=== PATIENT | female | born 1950 | race Caucasian/White ===

== ENCOUNTER 2017-10-11 00:14 | Inpatient (IN) | payer MEDICAID ==
[~2017-10-11] VITALS: Ht 162.6 cm; Wt 129.3 kg
[2017-10-11 01:46] LABS: Basophils # (auto) 0.1 uL; Basophils % (auto) 1.1 % (0.0-2.0); Eosinophils # (auto) 0 uL; Eosinophils % (auto) 0.4 % (0.0-7.0); Hematocrit 35.7 % (36.0-46.0); Lymphocytes # (auto) 1.5 uL; Lymphocytes % (auto) 25.1 % (10.0-50.0); Mean Corpuscular Hemoglobin 30.3 pg (28.0-32.0); Mean Corpuscular Hgb Conc. 33.6 g/dL (32.0-36.0); Mean Corpuscular Volume 90.1 fL (80.0-100.0); Monocytes # (auto) 0.9 uL; Monocytes % (auto) 14.4 % (0.0-12.0); Neutrophils # (auto) 3.6 uL; Nucleated Red Blood Cells % 0.1 %; Platelet Count (auto) 223 10^3/uL (140-450); Red Blood Cells 3.96 10^6/uL (4.0-5.20); Red Cell Distribution Width 14.3 % (11.8-14.3)
[2017-10-11 02:16] LABS: Alanine Aminotransferase 60 U/L (13-56); Anion Gap 9 (5-15); Aspartate Aminotransferase 89 U/L (15-37); BUN/Creatinine Ratio 6.5; Blood Urea Nitrogen 10 mg/dL (7-18); Calcium 8.6 mg/dL (8.5-10.1); Carbon Dioxide 29 mmol/L (21-32); Chloride 96 mmol/L (98-107); GFR African American 43 mL/min; GFR Non-African American 36 mL/min; Glucose 93 mg/dL (74-106); Potassium 3.7 mmol/L (3.5-5.1); Sodium 134 mmol/L (136-145)
[2017-10-11 02:21] LABS: Alkaline Phosphatase 72 U/L (45-117); Bilirubin, Total 0.6 mg/dL (0.2-1.0); Total Protein 7.6 g/dL (6.4-8.2)
[2017-10-11 05:21] LABS: Urine Bacteria FEW /hpf (None Seen); Urine Blood Negative /uL (Negative); Urine Hyaline Cast FEW /lpf (0 - 2); Urine Mucus FEW (None Seen); Urine Specific Gravity 1.018 (1.001-1.035); Urine WBC 2 /hpf (0 - 5)
[2017-10-11] MEDS ORDERED: MORPHINE SULF INJ 2 MG/ML SYRINGE 1ML IV PRN (07:15)
[2017-10-11] MEDS ORDERED: SODIUM CHLORIDE 0.9% 1,000 ML IV ONE ×3 (07:15)
[2017-10-11] MEDS: PANTOPRAZOLE 40 MG/10 ML VIAL IV SCH (10:17)
[2017-10-11 10:34] VITALS: BP 106/59
[2017-10-11 11:21] VITALS: BP 106/59
[2017-10-11 12:00] VITALS: BP_SYST 120; BP_SYST 96; BP_DIAS 32; BP_DIAS 72
[2017-10-11] MEDS: MORPHINE SULFATE 4 MG/ML SYR/VIAL IV PRN ×2 (13:20→22:29)
[2017-10-11] MEDS ORDERED: LORazepam 2MG/ML-1ML VIAL IV PRN (14:15)
[2017-10-11] MEDS: ACETAMINOPHEN 325 MG TAB PO PRN (14:24)
[2017-10-11 14:40] LABS: Alcohol, Urine < 3.0 mg/dL (0-5); Amphetamine Screen, Urine NEGATIVE (NEGATIVE); Barbiturate Scree,Urine NEGATIVE (NEGATIVE); Benzodiazephine Screen, Urine NEGATIVE (NEGATIVE); Cannabinoid Screen, Urine NEGATIVE (NEGATIVE); Cocaine Screen, Urine NEGATIVE (NEGATIVE); Opiate Scree,Urine NEGATIVE (NEGATIVE); Phencyclidine Screen, Urine NEGATIVE (NEGATIVE)
[2017-10-11] MEDS ORDERED: ASPirin-EC 81 mg tab PO ONE (17:00)
[2017-10-11 17:05] VITALS: BP 131/67
[2017-10-11] MEDS ORDERED: cefTRIAXone 1GM/10ml IVPUSH 10 ML IV ONE (17:15)
[2017-10-11] MEDS: SODIUM CHLORIDE 0.9% 1,000 ML IV SCH ×2 (18:07→22:32)
[2017-10-11 21:04] VITALS: BP 131/67
[2017-10-11 21:42] VITALS: BP 110/53
[2017-10-12] MEDS: ACETAMINOPHEN 325 MG TAB PO PRN ×2 (01:44→17:19)
[2017-10-12] MEDS: ALBUTEROL SULF 2.5 MG/0.5ML(0.5%) NEB SOLN NEB PRN (01:47)
[2017-10-12] MEDS: IPRATROPIUM BROM 0.5 MG/2.5ML INH SOL NEB PRN (01:47)
[2017-10-12 02:04] VITALS: BP 106/61
[2017-10-12] MEDS: LORazepam 2MG/ML-1ML VIAL IV PRN (02:58)
[2017-10-12 05:00] VITALS: BP 110/51
[2017-10-12 06:10] LABS: Basophils # (auto) 0 uL; Basophils % (auto) 0.7 % (0.0-2.0); Eosinophils # (auto) 0 uL; Eosinophils % (auto) 0.2 % (0.0-7.0); Hematocrit 31.4 % (36.0-46.0); Hemoglobin 10.5 g/dL (12.2-16.2); Lymphocytes # (auto) 1.7 uL; Lymphocytes % (auto) 37.6 % (10.0-50.0); Mean Corpuscular Hemoglobin 30.7 pg (28.0-32.0); Mean Corpuscular Hgb Conc. 33.6 g/dL (32.0-36.0); Mean Corpuscular Volume 91.4 fL (80.0-100.0); Monocytes # (auto) 0.6 uL; Monocytes % (auto) 13.7 % (0.0-12.0); Neutrophils # (auto) 2.2 uL; Neutrophils % (auto) 47.8 % (37.0-80.0); Nucleated Red Blood Cells % 0.2 %; Platelet Count (auto) 174 10^3/uL (140-450); Red Blood Cells 3.43 10^6/uL (4.0-5.20); Red Cell Distribution Width 14.5 % (11.8-14.3); White Blood Cell 4.6 10^3/uL (4.4-10.8)
[2017-10-12 06:38] LABS: Albumin 2.6 g/dL (3.4-5.0); BUN/Creatinine Ratio 8.2; Bilirubin, Total 0.3 mg/dL (0.2-1.0); Potassium 3.4 mmol/L (3.5-5.1); Total Protein 6.5 g/dL (6.4-8.2)
[2017-10-12 08:00] VITALS: BP 109/71
[2017-10-12] MEDS: ENOXAPARIN SOD 40 MG/0.4 ML SYRINGE SC SCH (09:33)
[2017-10-12] MEDS: ASPirin-EC 81 mg tab PO SCH (09:34)
[2017-10-12] MEDS: PANTOPRAZOLE 40 MG/10 ML VIAL IV SCH (09:34)
[2017-10-12] MEDS: cefTRIAXone 1GM/10ml IVPUSH 10 ML IV SCH (09:34)
[2017-10-12 12:00] VITALS: BP 100/52
[2017-10-12] MEDS: MORPHINE SULFATE 4 MG/ML SYR/VIAL IV PRN ×2 (14:43→20:53)
[2017-10-12] MEDS ORDERED: guaiFENesin-DM 100/10mg/5ml SYR PO PRN (15:00)
[2017-10-12] MEDS ORDERED: AZITHROMYCIN 500MG/ 250ML 250 ML IV ONE (15:00)
[2017-10-12] MEDS ORDERED: POTASSIUM CHL 20 Meq TABLET PO ONE (15:00)
[2017-10-12 17:00] VITALS: BP 124/67
[2017-10-12] MEDS: ONDANSETRON HCL 4 MG/2 ML VIAL IV PRN (20:52)
[2017-10-12] MEDS: OSELTAMIVIR 75 MG CAP PO SCH (21:18)
[2017-10-12 21:41] VITALS: BP 111/64
[2017-10-13] MEDS: SODIUM CHLORIDE 0.9% 1,000 ML IV SCH ×2 (03:25→18:33)
[2017-10-13 05:00] VITALS: BP 116/70
[2017-10-13 07:14] LABS: % Iron Saturation 9.8 % (15-50)
[2017-10-13 09:00] VITALS: BP 112/68
[2017-10-13] MEDS: ASPirin-EC 81 mg tab PO SCH (09:33)
[2017-10-13] MEDS: ENOXAPARIN SOD 40 MG/0.4 ML SYRINGE SC SCH (09:33)
[2017-10-13] MEDS: OSELTAMIVIR 75 MG CAP PO SCH ×2 (09:33→21:29)
[2017-10-13] MEDS: cefTRIAXone 1GM/10ml IVPUSH 10 ML IV SCH (09:34)
[2017-10-13] MEDS: AZITHROMYCIN 500MG/ 250ML 250 ML IV SCH (09:34)
[2017-10-13] MEDS: PANTOPRAZOLE 40 MG/10 ML VIAL IV SCH (09:34)
[2017-10-13] MEDS: IPRATROPIUM BROM 0.5 MG/2.5ML INH SOL NEB PRN ×2 (11:21→18:08)
[2017-10-13] MEDS: ALBUTEROL SULF 2.5 MG/0.5ML(0.5%) NEB SOLN NEB PRN ×2 (11:21→18:08)
[2017-10-13 17:00] VITALS: BP 112/61
[2017-10-13] MEDS: ACETAMINOPHEN 325 MG TAB PO PRN (18:48)
[2017-10-13] MEDS: LORazepam 0.5 MG TAB PO PRN (21:29)
[2017-10-13 23:53] VITALS: BP 100/58
[2017-10-14 05:52] VITALS: BP 112/64
[2017-10-14 05:59] LABS: Basophils # (auto) 0 uL; Basophils % (auto) 0.5 % (0.0-2.0); Eosinophils # (auto) 0 uL; Eosinophils % (auto) 0.5 % (0.0-7.0); Hematocrit 37.7 % (36.0-46.0); Hemoglobin 12.4 g/dL (12.2-16.2); Lymphocytes # (auto) 1.5 uL; Lymphocytes % (auto) 53.3 % (10.0-50.0); Mean Corpuscular Hemoglobin 30.5 pg (28.0-32.0); Mean Corpuscular Volume 92.4 fL (80.0-100.0); Monocytes # (auto) 0.3 uL; Monocytes % (auto) 11.4 % (0.0-12.0); Neutrophils % (auto) 34.3 % (37.0-80.0); Nucleated Red Blood Cells % 0.1 %; Platelet Count (auto) 158 10^3/uL (140-450); Red Blood Cells 4.08 10^6/uL (4.0-5.20); Red Cell Distribution Width 14.1 % (11.8-14.3); White Blood Cell 2.8 10^3/uL (4.4-10.8)
[2017-10-14 06:16] LABS: Albumin 2.7 g/dL (3.4-5.0); BUN/Creatinine Ratio 7.1; Bilirubin, Total 0.3 mg/dL (0.2-1.0); Calcium 8.2 mg/dL (8.5-10.1); Potassium 4.1 mmol/L (3.5-5.1)
[2017-10-14] MEDS: ALBUTEROL SULF 2.5 MG/0.5ML(0.5%) NEB SOLN NEB PRN ×2 (08:55→12:40)
[2017-10-14] MEDS: IPRATROPIUM BROM 0.5 MG/2.5ML INH SOL NEB PRN ×2 (08:55→12:40)
[2017-10-14 09:00] VITALS: BP 115/78
[2017-10-14] MEDS: PANTOPRAZOLE 40 MG TAB PO SCH (10:06)
[2017-10-14] MEDS: cefTRIAXone 1GM/10ml IVPUSH 10 ML IV SCH (10:06)
[2017-10-14] MEDS: OSELTAMIVIR 75 MG CAP PO SCH ×2 (10:06→22:10)
[2017-10-14] MEDS: ASPirin-EC 81 mg tab PO SCH (10:06)
[2017-10-14] MEDS: ENOXAPARIN SOD 40 MG/0.4 ML SYRINGE SC SCH (10:07)
[2017-10-14] MEDS: AZITHROMYCIN 500MG/ 250ML 250 ML IV SCH (10:07)
[2017-10-14] MEDS: ACETAMINOPHEN 325 MG TAB PO PRN (10:09)
[2017-10-14] MEDS: SODIUM CHLORIDE 0.9% 1,000 ML IV SCH (11:44)
[2017-10-14] MEDS: LORazepam 0.5 MG TAB PO PRN ×2 (11:44→22:10)
[2017-10-14 13:00] VITALS: BP 100/68
[2017-10-14] MEDS ORDERED: FLUCONAZOLE 200MG/100ML 100 ML IV ONE (13:45)
[2017-10-14 13:57] LABS: Free T4 (Free Thyroxine) 0.87 ng/dL (0.89-1.76)
[2017-10-14 13:58] LABS: Folate (Folic Acid) 8.84 ng/mL (5.38-24)
[2017-10-14 13:59] LABS: Hepatitis B Surface Antibody Negative
[2017-10-14] MEDS: ONDANSETRON HCL 4 MG/2 ML VIAL IV PRN ×2 (14:08→23:14)
[2017-10-14 14:10] LABS: Hepatitis B Surface Antigen Negative (Negative)
[2017-10-14 14:31] LABS: Hepatitis C Antibody Negative (Negative)
[2017-10-14 14:32] LABS: Hepatitis A Total Antibody Positive
[2017-10-14 14:35] LABS: Hepatitis B Core Total AB Negative
[2017-10-14] MEDS: MORPHINE SULFATE 4 MG/ML SYR/VIAL IV PRN (16:38)
[2017-10-14] MEDS ORDERED: CYANOCOBALAMIN (B-12) 1000 MCG/1 ML VIAL IM ONE (17:00)
[2017-10-14 17:22] VITALS: BP 134/62
[2017-10-14 22:00] VITALS: BP 106/59
[2017-10-15] VITALS (7 sets, daily range): BP systolic 119–133; BP diastolic 76–90
[2017-10-15] MEDS: SODIUM CHLORIDE 0.9% 1,000 ML IV SCH ×3 (04:34→22:33)
[2017-10-15] MEDS: ACETAMINOPHEN 325 MG TAB PO PRN (06:02)
[2017-10-15 06:19] LABS: Basophils # (auto) 0 uL; Basophils % (auto) 0.4 % (0.0-2.0); Eosinophils # (auto) 0 uL; Eosinophils % (auto) 0.7 % (0.0-7.0); Hematocrit 33.4 % (36.0-46.0); Hemoglobin 11.1 g/dL (12.2-16.2); Lymphocytes # (auto) 1.2 uL; Lymphocytes % (auto) 41.4 % (10.0-50.0); Mean Corpuscular Hemoglobin 30.2 pg (28.0-32.0); Mean Corpuscular Hgb Conc. 33.2 g/dL (32.0-36.0); Monocytes # (auto) 0.3 uL; Monocytes % (auto) 10.4 % (0.0-12.0); Neutrophils # (auto) 1.4 uL; Neutrophils % (auto) 47.1 % (37.0-80.0); Nucleated Red Blood Cells % 0.3 %; Platelet Count (auto) 160 10^3/uL (140-450); Red Blood Cells 3.67 10^6/uL (4.0-5.20); Red Cell Distribution Width 14.5 % (11.8-14.3)
[2017-10-15 06:34] LABS: BUN/Creatinine Ratio 8.1; Calcium 8.2 mg/dL (8.5-10.1); Potassium 3.7 mmol/L (3.5-5.1)
[2017-10-15] MEDS: PANTOPRAZOLE 40 MG TAB PO SCH (10:39)
[2017-10-15] MEDS: CYANOCOBALAMIN 500 MCG TAB PO SCH (10:39)
[2017-10-15] MEDS: ASPirin-EC 81 mg tab PO SCH (10:39)
[2017-10-15] MEDS: OSELTAMIVIR 75 MG CAP PO SCH ×2 (10:39→22:29)
[2017-10-15] MEDS: ENOXAPARIN SOD 40 MG/0.4 ML SYRINGE SC SCH (10:43)
[2017-10-15] MEDS: cefTRIAXone 1GM/10ml IVPUSH 10 ML IV SCH (11:11)
[2017-10-15] MEDS: FLUCONAZOLE 200MG/100ML 100 ML IV SCH (11:12)
[2017-10-15] MEDS: AZITHROMYCIN 500MG/ 250ML 250 ML IV SCH (12:00)
[2017-10-15] MEDS ORDERED: IOHEXOL 350 MG/ML 100ML IJ ONE (14:49)
[2017-10-15] MEDS ORDERED: ENOXAPARIN SOD 120 MG/0.8 ML SYRINGE SC ONE (18:15)
[2017-10-15] MEDS: MORPHINE SULFATE 4 MG/ML SYR/VIAL IV PRN (23:46)
[2017-10-16] VITALS (8 sets, daily range): BP systolic 101–141; BP diastolic 65–76
[2017-10-16 06:01] LABS: Basophils # (auto) 0 uL; Basophils % (auto) 0.4 % (0.0-2.0); Eosinophils # (auto) 0 uL; Eosinophils % (auto) 0.7 % (0.0-7.0); Hematocrit 32.8 % (36.0-46.0); Hemoglobin 10.9 g/dL (12.2-16.2); Lymphocytes # (auto) 1.7 uL; Lymphocytes % (auto) 53.7 % (10.0-50.0); Mean Corpuscular Hemoglobin 29.9 pg (28.0-32.0); Mean Corpuscular Hgb Conc. 33.1 g/dL (32.0-36.0); Mean Corpuscular Volume 90.3 fL (80.0-100.0); Monocytes # (auto) 0.3 uL; Monocytes % (auto) 11.2 % (0.0-12.0); Neutrophils # (auto) 1.1 uL; Nucleated Red Blood Cells % 0.3 %; Platelet Count (auto) 153 10^3/uL (140-450); Red Blood Cells 3.63 10^6/uL (4.0-5.20); Red Cell Distribution Width 14.2 % (11.8-14.3); White Blood Cell 3.1 10^3/uL (4.4-10.8)
[2017-10-16 06:32] LABS: Albumin 2.4 g/dL (3.4-5.0); Calcium 8.2 mg/dL (8.5-10.1); Potassium 3.7 mmol/L (3.5-5.1)
[2017-10-16 06:35] LABS: BUN/Creatinine Ratio 5.6; Bilirubin, Total 0.3 mg/dL (0.2-1.0); Total Protein 6.4 g/dL (6.4-8.2)
[2017-10-16] MEDS ORDERED: ENOXAPARIN SOD 120 MG/0.8 ML SYRINGE SC SCH (10:00)
[2017-10-16] MEDS: ASPirin-EC 81 mg tab PO SCH (10:13)
[2017-10-16] MEDS: CYANOCOBALAMIN 500 MCG TAB PO SCH (10:14)
[2017-10-16] MEDS: OSELTAMIVIR 75 MG CAP PO SCH ×2 (10:14→22:05)
[2017-10-16] MEDS: PANTOPRAZOLE 40 MG TAB PO SCH (10:14)
[2017-10-16] MEDS: FLUCONAZOLE 200MG/100ML 100 ML IV SCH (10:25)
[2017-10-16] MEDS: cefTRIAXone 1GM/10ml IVPUSH 10 ML IV SCH (10:25)
[2017-10-16] MEDS: AZITHROMYCIN 500MG/ 250ML 250 ML IV SCH (12:06)
[2017-10-16] MEDS: SODIUM CHLORIDE 0.9% 1,000 ML IV SCH ×2 (13:45→18:45)
[2017-10-16] MEDS: ACETAMINOPHEN 325 MG TAB PO PRN (15:35)
[2017-10-16] MEDS: LORazepam 0.5 MG TAB PO PRN (22:05)
[2017-10-17] MEDS: ONDANSETRON HCL 4 MG/2 ML VIAL IV PRN (02:02)
[2017-10-17] MEDS: SODIUM CHLORIDE 0.9% 1,000 ML IV SCH ×2 (04:45→14:45)
[2017-10-17 05:00] VITALS: BP 140/87
[2017-10-17 08:00] VITALS: BP 129/75
[2017-10-17 09:00] VITALS: BP 129/75
[2017-10-17] MEDS: cefTRIAXone 1GM/10ml IVPUSH 10 ML IV SCH (09:00)
[2017-10-17] MEDS: LORazepam 0.5 MG TAB PO PRN ×2 (09:14→22:08)
[2017-10-17] MEDS: FLUCONAZOLE 200MG/100ML 100 ML IV SCH (11:09)
[2017-10-17] MEDS: AZITHROMYCIN 500MG/ 250ML 250 ML IV SCH (11:09)
[2017-10-17] MEDS: PANTOPRAZOLE 40 MG TAB PO SCH (11:10)
[2017-10-17] MEDS: CYANOCOBALAMIN 500 MCG TAB PO SCH (11:10)
[2017-10-17] MEDS: OSELTAMIVIR 75 MG CAP PO SCH ×2 (11:10→20:30)
[2017-10-17] MEDS: ASPirin-EC 81 mg tab PO SCH (11:11)
[2017-10-17] MEDS: MORPHINE SULFATE 4 MG/ML SYR/VIAL IV PRN ×2 (11:31→20:30)
[2017-10-17 12:50] VITALS: BP 127/76
[2017-10-17 16:36] VITALS: BP 132/75
[2017-10-17] MEDS: ASPirin-EC 325mg tab PO SCH (18:23)
[2017-10-17 21:57] VITALS: BP 120/70
[2017-10-18] VITALS (7 sets, daily range): BP systolic 119–134; BP diastolic 51–86
[2017-10-18] MEDS: SODIUM CHLORIDE 0.9% 1,000 ML IV SCH ×2 (00:52→23:06)
[2017-10-18] MEDS: ALBUTEROL SULF 2.5 MG/0.5ML(0.5%) NEB SOLN NEB PRN ×2 (02:30→22:11)
[2017-10-18] MEDS: IPRATROPIUM BROM 0.5 MG/2.5ML INH SOL NEB PRN ×2 (02:30→22:11)
[2017-10-18] MEDS: ACETAMINOPHEN 325 MG TAB PO PRN (03:31)
[2017-10-18] MEDS: LORazepam 0.5 MG TAB PO PRN ×2 (04:47→22:37)
[2017-10-18] MEDS: cefTRIAXone 1GM/10ml IVPUSH 10 ML IV SCH (09:00)
[2017-10-18] MEDS: MORPHINE SULFATE 4 MG/ML SYR/VIAL IV PRN ×3 (09:15→19:50)
[2017-10-18] MEDS: CYANOCOBALAMIN 500 MCG TAB PO SCH (10:00)
[2017-10-18] MEDS: OSELTAMIVIR 75 MG CAP PO SCH ×2 (10:00→22:34)
[2017-10-18] MEDS: FLUCONAZOLE 200MG/100ML 100 ML IV SCH (10:00)
[2017-10-18] MEDS: PANTOPRAZOLE 40 MG TAB PO SCH (10:48)
[2017-10-18] MEDS: ASPirin-EC 81 mg tab PO SCH (10:49)
[2017-10-18] MEDS: ASPirin-EC 325mg tab PO SCH (10:50)
[2017-10-18] MEDS: AZITHROMYCIN 500MG/ 250ML 250 ML IV SCH (12:00)
[2017-10-18] MEDS: LORazepam 2MG/ML-1ML VIAL IV PRN (12:36)
[2017-10-18] MEDS: ONDANSETRON HCL 4 MG/2 ML VIAL IV PRN (19:49)
[2017-10-19] MEDS: MORPHINE SULFATE 4 MG/ML SYR/VIAL IV PRN (02:05)
[2017-10-19] MEDS: ONDANSETRON HCL 4 MG/2 ML VIAL IV PRN ×2 (02:05→13:21)
[2017-10-19 05:22] VITALS: BP 147/79
[2017-10-19] MEDS: IPRATROPIUM BROM 0.5 MG/2.5ML INH SOL NEB SCH ×2 (05:53→18:56)
[2017-10-19] MEDS: SODIUM CHLORIDE 0.9% 1,000 ML IV SCH ×2 (06:26→16:45)
[2017-10-19] MEDS: IPRATROPIUM BROM 0.5 MG/2.5ML INH SOL NEB PRN (06:48)
[2017-10-19] MEDS: ALBUTEROL SULF 2.5 MG/0.5ML(0.5%) NEB SOLN NEB PRN (06:48)
[2017-10-19 08:00] VITALS: BP 131/83
[2017-10-19 09:00] VITALS: BP 131/83
[2017-10-19] MEDS: OSELTAMIVIR 75 MG CAP PO SCH (10:00)
[2017-10-19] MEDS: CYANOCOBALAMIN 500 MCG TAB PO SCH (10:38)
[2017-10-19] MEDS: PANTOPRAZOLE 40 MG TAB PO SCH (10:38)
[2017-10-19] MEDS: ASPirin-EC 81 mg tab PO SCH (10:38)
[2017-10-19] MEDS: cefTRIAXone 1GM/10ml IVPUSH 10 ML IV SCH (10:39)
[2017-10-19] MEDS: FLUCONAZOLE 200MG/100ML 100 ML IV SCH (10:40)
[2017-10-19] MEDS: ASPirin-EC 325mg tab PO SCH (10:40)
[2017-10-19 13:00] VITALS: BP 128/77
[2017-10-19] MEDS: AZITHROMYCIN 500MG/ 250ML 250 ML IV SCH (13:31)
[2017-10-19] MEDS: methylPREDNISolone SOD SUCC 125 MG/2 ML VL IV SCH ×2 (16:43→22:13)
[2017-10-19 17:00] VITALS: BP 133/72
[2017-10-19] MEDS: ALBUTEROL SULF 2.5 MG/0.5ML(0.5%) NEB SOLN NEB SCH (18:56)
[2017-10-19] MEDS: BUDESONIDE (INHALATION) 0.5 MG/2 ML NEB NEB SCH (18:56)
[2017-10-19 22:00] VITALS: BP 133/76
[2017-10-20] MEDS: SODIUM CHLORIDE 0.9% 1,000 ML IV SCH ×3 (02:13→22:45)
[2017-10-20] MEDS: methylPREDNISolone SOD SUCC 125 MG/2 ML VL IV SCH ×4 (03:42→21:37)
[2017-10-20 05:24] VITALS: BP 128/75
[2017-10-20] MEDS: BUDESONIDE (INHALATION) 0.5 MG/2 ML NEB NEB SCH ×2 (06:01→18:33)
[2017-10-20] MEDS: ALBUTEROL SULF 2.5 MG/0.5ML(0.5%) NEB SOLN NEB SCH ×4 (06:01→18:33)
[2017-10-20] MEDS: IPRATROPIUM BROM 0.5 MG/2.5ML INH SOL NEB SCH ×4 (06:01→18:33)
[2017-10-20 06:09] LABS: Basophils # (auto) 0 uL; Basophils % (auto) 0.1 % (0.0-2.0); Eosinophils # (auto) 0 uL; Eosinophils % (auto) 0.1 % (0.0-7.0); Hematocrit 34.7 % (36.0-46.0); Hemoglobin 11.5 g/dL (12.2-16.2); Lymphocytes # (auto) 0.8 uL; Lymphocytes % (auto) 31.5 % (10.0-50.0); Mean Corpuscular Hemoglobin 29.9 pg (28.0-32.0); Mean Corpuscular Hgb Conc. 33.1 g/dL (32.0-36.0); Mean Corpuscular Volume 90.5 fL (80.0-100.0); Monocytes # (auto) 0 uL; Monocytes % (auto) 1.6 % (0.0-12.0); Neutrophils # (auto) 1.8 uL; Neutrophils % (auto) 66.7 % (37.0-80.0); Nucleated Red Blood Cells % 0.1 %; Platelet Count (auto) 184 10^3/uL (140-450); Red Blood Cells 3.84 10^6/uL (4.0-5.20); White Blood Cell 2.6 10^3/uL (4.4-10.8)
[2017-10-20 06:26] LABS: Albumin 2.5 g/dL (3.4-5.0); BUN/Creatinine Ratio 6.3; Bilirubin, Total 0.3 mg/dL (0.2-1.0); Calcium 8.3 mg/dL (8.5-10.1); Potassium 3.7 mmol/L (3.5-5.1); Total Protein 6.6 g/dL (6.4-8.2)
[2017-10-20 08:00] VITALS: BP 126/70
[2017-10-20] MEDS: LORazepam 0.5 MG TAB PO PRN ×2 (08:04→17:36)
[2017-10-20 09:00] VITALS: BP 126/70
[2017-10-20] MEDS: cefTRIAXone 1GM/10ml IVPUSH 10 ML IV SCH (10:23)
[2017-10-20] MEDS: ASPirin-EC 81 mg tab PO SCH (10:24)
[2017-10-20] MEDS: PANTOPRAZOLE 40 MG TAB PO SCH (10:24)
[2017-10-20] MEDS: ASPirin-EC 325mg tab PO SCH (10:24)
[2017-10-20] MEDS: CYANOCOBALAMIN 500 MCG TAB PO SCH (10:24)
[2017-10-20 13:00] VITALS: BP 137/88
[2017-10-20] MEDS: ACETAMINOPHEN 325 MG TAB PO PRN ×2 (15:17→22:18)
[2017-10-20 17:25] VITALS: BP 130/89
[2017-10-20] MEDS: HYDROcodone-ACET 5/325MG TAB PO PRN (18:48)
[2017-10-20 22:11] VITALS: BP 134/73
[2017-10-20] MEDS: LORazepam 2MG/ML-1ML VIAL IV PRN (22:14)
[2017-10-21] MEDS: HYDROcodone-ACET 5/325MG TAB PO PRN ×2 (00:32→05:07)
[2017-10-21] MEDS: methylPREDNISolone SOD SUCC 125 MG/2 ML VL IV SCH ×4 (03:57→21:24)
[2017-10-21 05:17] VITALS: BP 131/80
[2017-10-21] MEDS: ACETAMINOPHEN 325 MG TAB PO PRN (05:47)
[2017-10-21] MEDS: LORazepam 0.5 MG TAB PO PRN ×2 (05:47→15:34)
[2017-10-21] MEDS: MORPHINE SULFATE 4 MG/ML SYR/VIAL IV PRN (06:00)
[2017-10-21] MEDS: ALBUTEROL SULF 2.5 MG/0.5ML(0.5%) NEB SOLN NEB SCH ×4 (06:39→19:28)
[2017-10-21] MEDS: IPRATROPIUM BROM 0.5 MG/2.5ML INH SOL NEB SCH ×4 (06:39→19:28)
[2017-10-21] MEDS: BUDESONIDE (INHALATION) 0.5 MG/2 ML NEB NEB SCH ×2 (06:39→07:01)
[2017-10-21 09:00] VITALS: BP 128/72
[2017-10-21] MEDS: SODIUM CHLORIDE 0.9% 1,000 ML IV SCH ×2 (09:11→18:40)
[2017-10-21] MEDS: cefTRIAXone 1GM/10ml IVPUSH 10 ML IV SCH (09:14)
[2017-10-21] MEDS: PANTOPRAZOLE 40 MG TAB PO SCH (10:49)
[2017-10-21] MEDS: CYANOCOBALAMIN 500 MCG TAB PO SCH (10:49)
[2017-10-21] MEDS: AZITHROMYCIN 250 MG TAB PO SCH (10:49)
[2017-10-21] MEDS: ASPirin-EC 325mg tab PO SCH (10:50)
[2017-10-21] MEDS: FLUCONAZOLE 200MG/100ML 100 ML IV SCH (10:59)
[2017-10-21] MEDS: LORazepam 2MG/ML-1ML VIAL IV PRN ×2 (11:09)
[2017-10-21 13:00] VITALS: BP 126/71
[2017-10-21 16:15] VITALS: BP 124/70
[2017-10-21 16:20] VITALS: BP 115/78
[2017-10-21] MEDS: ONDANSETRON HCL 4 MG/2 ML VIAL IV PRN (18:38)
[2017-10-21] MEDS: HYDROmorphone HCL 2 MG/ML VL IV PRN (21:25)
[2017-10-21 23:19] VITALS: BP 123/76
[2017-10-22] MEDS: LORazepam 0.5 MG TAB PO PRN (03:20)
[2017-10-22] MEDS: methylPREDNISolone SOD SUCC 125 MG/2 ML VL IV SCH ×4 (03:58→21:47)
[2017-10-22] MEDS: SODIUM CHLORIDE 0.9% 1,000 ML IV SCH ×3 (03:58→21:47)
[2017-10-22] MEDS: HYDROcodone-ACET 5/325MG TAB PO PRN ×2 (04:24→14:01)
[2017-10-22 05:43] VITALS: BP 127/74
[2017-10-22] MEDS: HYDROmorphone HCL 2 MG/ML VL IV PRN ×2 (06:36→16:29)
[2017-10-22] MEDS: ALBUTEROL SULF 2.5 MG/0.5ML(0.5%) NEB SOLN NEB SCH ×4 (06:52→18:50)
[2017-10-22] MEDS: IPRATROPIUM BROM 0.5 MG/2.5ML INH SOL NEB SCH ×4 (06:52→18:50)
[2017-10-22 09:00] VITALS: BP 119/73
[2017-10-22] MEDS: BUDESONIDE (INHALATION) 0.5 MG/2 ML NEB NEB SCH ×2 (10:00→18:50)
[2017-10-22] MEDS: ASPirin-EC 325mg tab PO SCH (11:41)
[2017-10-22] MEDS: FLUCONAZOLE 200MG/100ML 100 ML IV SCH (11:41)
[2017-10-22] MEDS: cefTRIAXone 1GM/10ml IVPUSH 10 ML IV SCH (11:41)
[2017-10-22] MEDS: AZITHROMYCIN 250 MG TAB PO SCH (11:42)
[2017-10-22] MEDS: CYANOCOBALAMIN 500 MCG TAB PO SCH (11:42)
[2017-10-22] MEDS: PANTOPRAZOLE 40 MG TAB PO SCH (11:42)
[2017-10-22 13:00] VITALS: BP 128/81
[2017-10-22 17:22] VITALS: BP 126/70
[2017-10-22 22:00] VITALS: BP 113/62
[2017-10-23] MEDS: HYDROcodone-ACET 5/325MG TAB PO PRN ×3 (02:42→16:19)
[2017-10-23] MEDS: methylPREDNISolone SOD SUCC 125 MG/2 ML VL IV SCH ×4 (03:50→20:58)
[2017-10-23] MEDS: HYDROmorphone HCL 2 MG/ML VL IV PRN ×2 (03:55→08:51)
[2017-10-23 05:22] VITALS: BP 135/84
[2017-10-23] MEDS: LORazepam 0.5 MG TAB PO PRN ×2 (05:34→15:27)
[2017-10-23] MEDS: ACETAMINOPHEN 325 MG TAB PO PRN (06:15)
[2017-10-23] MEDS: ALBUTEROL SULF 2.5 MG/0.5ML(0.5%) NEB SOLN NEB SCH ×4 (06:22→18:51)
[2017-10-23] MEDS: BUDESONIDE (INHALATION) 0.5 MG/2 ML NEB NEB SCH ×2 (06:22→18:51)
[2017-10-23] MEDS: IPRATROPIUM BROM 0.5 MG/2.5ML INH SOL NEB SCH ×3 (06:22→18:51)
[2017-10-23 09:00] VITALS: BP_SYST 136; BP_SYST 152; BP_DIAS 77; BP_DIAS 79
[2017-10-23] MEDS ORDERED: cefTRIAXone 1GM/10ml IVPUSH 10 ML IV SCH (09:00)
[2017-10-23] MEDS: PANTOPRAZOLE 40 MG TAB PO SCH (09:58)
[2017-10-23] MEDS: AZITHROMYCIN 250 MG TAB PO SCH (09:58)
[2017-10-23] MEDS: FLUCONAZOLE 100 MG TAB PO SCH (09:58)
[2017-10-23] MEDS: CYANOCOBALAMIN 500 MCG TAB PO SCH (09:59)
[2017-10-23] MEDS: ASPirin-EC 325mg tab PO SCH (10:00)
[2017-10-23] MEDS: SODIUM CHLORIDE 0.9% 1,000 ML IV SCH ×2 (10:45→20:58)
[2017-10-23 13:00] VITALS: BP 131/79
[2017-10-23 17:00] VITALS: BP 137/72
[2017-10-23] MEDS: LORazepam 2MG/ML-1ML VIAL IV PRN (20:58)
[2017-10-23 22:00] VITALS: BP 129/74
[2017-10-24] MEDS: methylPREDNISolone SOD SUCC 125 MG/2 ML VL IV SCH ×3 (03:56→17:50)
[2017-10-24] MEDS: LORazepam 0.5 MG TAB PO PRN ×2 (04:16→14:41)
[2017-10-24] MEDS: SODIUM CHLORIDE 0.9% 1,000 ML IV SCH ×2 (04:25→17:49)
[2017-10-24 05:30] VITALS: BP 152/82
[2017-10-24] MEDS: IPRATROPIUM BROM 0.5 MG/2.5ML INH SOL NEB SCH ×4 (07:01→18:12)
[2017-10-24] MEDS: ALBUTEROL SULF 2.5 MG/0.5ML(0.5%) NEB SOLN NEB SCH ×4 (07:01→18:12)
[2017-10-24] MEDS: BUDESONIDE (INHALATION) 0.5 MG/2 ML NEB NEB SCH ×2 (07:01→18:13)
[2017-10-24 09:00] VITALS: BP 122/74
[2017-10-24] MEDS: ASPirin-EC 325mg tab PO SCH (09:18)
[2017-10-24] MEDS: HYDROcodone-ACET 5/325MG TAB PO PRN (09:18)
[2017-10-24] MEDS: PANTOPRAZOLE 40 MG TAB PO SCH (09:18)
[2017-10-24] MEDS: FLUCONAZOLE 100 MG TAB PO SCH (09:19)
[2017-10-24] MEDS: CYANOCOBALAMIN 500 MCG TAB PO SCH (09:51)
[2017-10-24 13:00] VITALS: BP 123/65
[2017-10-24 18:01] VITALS: BP 127/61
[2017-10-24] MEDS: LORazepam 2MG/ML-1ML VIAL IV PRN (18:32)
== END 2017-10-24 18:41 | disposition short-term general hospital (02) | DRG 720 ==
LOC: ER 00:14 → EDBD 00:14 → OVERFLOW 00:15 → WEST WING 10:15 → TELE-WESTW 10-15 21:00
PROVIDERS: ADMIT Family Medicine; ATTEND Internal Medicine Pulmonary Disease
DX: A41.9 Sepsis, unspecified organism (principal); N17.0 Acute kidney failure with tubular necrosis; I26.99 Other pulmonary embolism without acute cor pulmonale; I11.0 Hypertensive heart disease with heart failure; G93.41 Metabolic encephalopathy; I67.1 Cerebral aneurysm, nonruptured; J11.00 Influenza due to unidentified influenza virus with unspecified type of pneumonia; I50.9 Heart failure, unspecified; E11.51 Type 2 diabetes mellitus with diabetic peripheral angiopathy without gangrene; E66.01 Morbid (severe) obesity due to excess calories; K80.20 Calculus of gallbladder without cholecystitis without obstruction; E87.6 Hypokalemia; J44.0 Chronic obstructive pulmonary disease with (acute) lower respiratory infection; J44.1 Chronic obstructive pulmonary disease with (acute) exacerbation; E86.0 Dehydration; G45.4 Transient global amnesia; Z79.82 Long term (current) use of aspirin; Z83.3 Family history of diabetes mellitus; Z93.3 Colostomy status
CPT/HCPCS: 36415; 70450; 70496; 71010; 71020; 71275; 74176; 76705; 80048; 80053; 80061; 80307; 81001; 82270; 82607; 82746; 82962; 83036; 83540; 83550; 83735; 84439; 84443; 84484; 85025; 85379; 86704; 86706; 86708; 86803; 87040; 87070; 87081; 87086; 87205; 87340; 87400; 93005; 93970; 94640; 95819; 96360; C9113; J1450; J2405